=== PATIENT | male | born 2000 | race Caucasian/White ===

== ENCOUNTER 2024-08-21 06:19 | Emergency (ER) | payer SELFPAY ==
[~2024-08-21] VITALS: Ht 188 cm; Wt 75.0 kg
[2024-08-21 06:31] VITALS: O2SAT 99
[2024-08-21 08:23] LABS: BASOPHILS % 0.5 % (0.0-2.0); EOSINOPHILS % 0.8 % (0.0-5.0); HEMATOCRIT. 48.6 % (42.0-52.0); LYMPHOCYTES % 16.7 % (20.0-50.0); MEAN CORPUSCULAR HEMOGLOBIN 28.8 pg (28.0-32.0); MEAN CORPUSCULAR VOLUME 82.3 fL (80.0-94.0); MEAN PLATELET VOLUME 7.6 fl (7.4-10.4); MONOCYTES % 5.8 % (2.0-8.0); NEUTROPHILS % 76.2 % (40.0-76.0); PLATELET 192 x1000/uL (130-400); RED BLOOD CELL COUNT 5.91 mill/uL (4.7-6.1); RED CELL DISTRIBUTION WIDTH 13.8 % (11.6-14.6); WHITE BLOOD COUNT 10.6 x1000/uL (4.5-11.0)
[2024-08-21 08:33] LABS: CHLORIDE 106 mEq/L (98-107); SODIUM 139 mEq/L (136-145)
[2024-08-21 08:34] LABS: CARBON DIOXIDE 29 mEq/L (21-32)
[2024-08-21 08:39] LABS: CREATININE 1.1 mg/dL (0.6-1.3); GLUCOSE 114 mg/dL (70-105); UREA NITROGEN BLOOD 13 mg/dL (9-23)
[2024-08-21 08:41] LABS: TROPONIN I HIGH SENSITIVITY 22 ng/L (3.0-53)
[2024-08-21 10:42] LABS: TROPONIN I HIGH SENSITIVITY 22 ng/L (3.0-53)
[2024-08-21 10:46] VITALS: BP 122/70; PULSE 72; RESP 19; TEMP 36.9; O2SAT 98
== END 2024-08-21 11:08 | disposition home or self-care (01) ==
LOC: ER 06:19
DX: R00.2 Palpitations (principal); R20.2 Paresthesia of skin; R20.0 Anesthesia of skin
CPT/HCPCS: 36415; 71045; 80048; 84484; 85025; 85379; 93005; 99285